=== PATIENT | male | born 1975 | race Caucasian/White ===

== ENCOUNTER 2017-07-31 22:53 | Inpatient (IN) | payer BC ==
[2017-07-31] MEDS ORDERED: MORPHINE SULFATE 2 MG/ML SYRINGE IV STA (23:34)
[2017-07-31] MEDS ORDERED: SODIUM CHLORIDE 0.9% 1,000 ML IV STA (23:34)
[2017-07-31] MEDS ORDERED: IPRATROPIUM-ALBUTEROL 3 ML NEB INHALATION STA (23:35)
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
[2017-08-01] LABS: Basophils % (A) 0 %; Eosinophils # (A) 0.4 k/uL (0-0.7); Eosinophils % (A) 7 %; HCT 37.4 % (39.0-53.0); HGB 12.6 gm/dL (13.0-17.5); Lymphocytes # (A) 1.4 k/uL (1.0-4.8); Lymphocytes % (A) 23 %; MCH 30.2 pg (25.0-35.0); MCHC 33.6 g/dL (31.0-37.0); MCV 89.7 fL (80.0-100.0); Mean Platelet Volume 7.5; Monocytes # (A) 0.4 k/uL (0-1.0); Monocytes % (A) 7 %; Neutrophils # (A) 3.8 k/uL (1.3-7.7); Neutrophils % (A) 61 %; Platelet Count 269 k/uL (150-450); RBC 4.17 m/uL (4.30-5.90); RDW 13.4 % (11.5-15.5); WBC 6.1 k/uL (3.8-10.6)
[2017-08-01 00:09] LABS: Partial Thromboplastin Time 24.7 sec (22.0-30.0); Prothrombin Time 9.6 sec (9.0-12.0)
[2017-08-01 00:10] LABS: ALT 70 U/L (21-72); AST 58 U/L (17-59); Albumin 3.6 g/dL (3.5-5.0); Alkaline Phosphatase 71 U/L (38-126); Anion Gap 10 mmol/L; Blood Urea Nitrogen 19 mg/dL (9-20); Calcium 9.3 mg/dL (8.4-10.2); Carbon Dioxide 30 mmol/L (22-30); Chloride 98 mmol/L (98-107); Glucose 120 mg/dL (74-99); Magnesium 2.2 mg/dL (1.6-2.3); Phosphorus 4.9 mg/dL (2.5-4.5); Potassium 4.9 mmol/L (3.5-5.1); Sodium 138 mmol/L (137-145); Total Bilirubin 0.6 mg/dL (0.2-1.3); Total Protein 6.2 g/dL (6.3-8.2)
[2017-08-01 00:13] LABS: Creatine Kinase 255 U/L (55-170)
[2017-08-01 00:26] LABS: Creatine Kinase MB 0.6 ng/mL (0.0-2.4); Troponin I <0.012 ng/mL (0.000-0.034)
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
[2017-08-01 01:22] LABS: Appearance,Urine Clear (Clear); Bilirubin,Urine Negative (Negative); Blood,Urine Negative (Negative); Color,Urine Light Yellow; Glucose,Urine (UA) Negative (Negative); Ketones,Urine Negative (Negative); Leukocyte Esterase,Urine Negative (Negative); Nitrite,Urine Negative (Negative); Protein,Urine Negative (Negative); Urobilinogen,Urine <2.0 mg/dL (<2.0)
[2017-08-01 01:25] LABS: Specific Gravity,Urine 1.048 (1.001-1.035)
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
--- NOTE | 2017-08-01 01:36 | US ---
EXAMINATION TYPE: US venous doppler duplex LE LT DATE OF EXAM: 08/01/2017 12:08 AM COMPARISON: NONE CLINICAL HISTORY: Pain. left leg pain and swelling SIDE PERFORMED: Left TECHNIQUE: The lower extremity deep venous system is examined utilizing real time linear array sonog jayant with graded compression, doppler sonography and color-flow sonography. VESSELS IMAGED: External Iliac Vein (EIV) Common Femoral Vein Deep Femoral Vein Greater Saphenous Vein * Femoral Vein Popliteal Vein Small Saphenous Vein * Proximal Calf Veins (* superficial vessels) Left Leg: Negative for DVT IMPRESSION: No evidence of deep venous thrombosis in the left leg.
--- NOTE | 2017-08-01 01:44 | XR ---
EXAMINATION TYPE: XR chest 1V portable DATE OF EXAM: 08/01/2017 COMPARISON: NONE HISTORY: Pneumothorax TECHNIQUE: Single frontal view of the chest is obtained. FINDINGS: There is a left-sided pneumothorax. Trachea is deviated slightly to the right. Cardiac anthony houette is enlarged. There is a plate fixing the left clavicle. Detail is limited by underexposure. T here is bilateral infiltrates at the lung bases. IMPRESSION: Left-sided pneumothorax. Atelectasis and infiltrate at the lung bases. Pneumothorax is a t least 30% on this image.
[2017-08-01] MEDS ORDERED: LIDOCAINE 1%-EPI 1:100,000 30 ML VIAL SQ STA (01:56)
[2017-08-01] MEDS ORDERED: HEPARIN SODIUM,PORCINE 5,000 UNIT/ML 1 ML VIAL IV PRN (02:20)
[2017-08-01] MEDS ORDERED: MORPHINE SULFATE 2 MG/ML SYRINGE IVP STA (02:20)
[2017-08-01] MEDS ORDERED: HEPARIN SODIUM,PORCINE 5,000 UNIT/ML 1 ML VIAL IV ONE (02:20)
[2017-08-01] MEDS: HEPARIN SOD,PORK IN 0.45% NACL 25,000 UNIT in 0.45% NACL 1 500ML.BAG IV SCH ×2 (02:42→15:43)
[2017-08-01 03:09] LABS: Glucose,Whole Blood 114 mg/dL (75-99)
[2017-08-01] MEDS: SODIUM CHLORIDE 0.9% 1,000 ML IV SCH ×3 (03:15→21:58)
[2017-08-01] MEDS: KETOROLAC 30 MG/ML 1 ML VIAL IVP PRN ×4 (03:42→20:18)
[2017-08-01 04:10] VITALS: BMI 33.6
[2017-08-01] MEDS ORDERED: SENNOSIDES 8.6 MG TAB PO PRN (06:22)
[2017-08-01] MEDS ORDERED: DOCUSATE 100 MG CAP PO PRN (06:23)
[2017-08-01] MEDS: MORPHINE SULFATE 2 MG/ML SYRINGE IVP PRN ×4 (06:36→21:42)
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
--- NOTE | 2017-08-01 07:14 | XR ---
EXAMINATION TYPE: XR chest 1V portable DATE OF EXAM: 08/01/2017 COMPARISON: Today at 1:15 AM HISTORY: Follow-up pneumothorax TECHNIQUE: Single frontal view of the chest is obtained. FINDINGS: There is hiatal hernia. There is some patchy atelectasis at the left lung base. Trachea is midline. I see no definite pneumothorax. I see no definite pleural effusion. There is a plate fixing the left clavicle. IMPRESSION: There is significant clearing of the left-sided pneumothorax compared to previous exam. No chest tube is seen. There is some atelectasis at the left and right lung bases.
[2017-08-01] MEDS: IPRATROPIUM-ALBUTEROL 3 ML NEB INHALATION SCH ×4 (07:50→19:28)
[2017-08-01] MEDS: ALPRAZolam 0.5 MG TAB PO PRN ×2 (08:08→16:44)
[2017-08-01] MEDS: PANTOPRAZOLE 40 MG TABLET PO SCH (08:09)
[2017-08-01] MEDS: GABAPENTIN 300 MG CAP PO SCH ×3 (08:09→21:43)
[2017-08-01] MEDS ORDERED: LIDOCAINE 1% INJ 10MG/ML (20 ML MDV) SQ STA (09:02)
[2017-08-01 09:40] LABS: HCT 35.6 % (39.0-53.0); HGB 11.8 gm/dL (13.0-17.5); MCH 30.2 pg (25.0-35.0); MCHC 33.1 g/dL (31.0-37.0); MCV 91.4 fL (80.0-100.0); Platelet Count 256 k/uL (150-450); WBC 7.2 k/uL (3.8-10.6)
[2017-08-01 09:51] LABS: Glucose,Whole Blood 117 mg/dL (75-99)
--- NOTE | 2017-08-01 11:24 | CT ---
EXAMINATION TYPE: CT chest wo con DATE OF EXAM: 08/01/2017 COMPARISON: Earlier today HISTORY: 42-year-old male follow-up Pneumothorax TECHNIQUE: Contiguous axial scanning of the chest without IV contrast. Coronal and sagittal reconstru ctions performed. CT DLP: 471.3 mGycm Automated exposure control for dose reduction was used. FINDINGS: Heart upper limits of normal in size with trace anterior basilar pericardial fluid. The degree of rig htward shift of the heart is improved. Aorta normal caliber with conventional arch vessel branching anatomy. In retrospect, there appears to be central filling defect within the right upper lobe segmental branc h, referred to the patient's prior exam series 2 image 54. A few scattered prominent but nonenlarged mediastinal lymph nodes measure up to 8 mm in the paratrach eal region and AP window. Prominent patchy right basilar atelectasis or infiltrate. Left-sided hydropneumothorax redemonstrated with a moderate to large, approximately 50% pneumothorax. There also appears to be collapse of the left lower lobe and a small to moderate left pleural effusi on. Only minimal reexpansion is compared to earlier in the day. Mild patchy groundglass in the peripheral right upper lobe is nonspecific. Tiny hiatal hernia. Visualized upper abdomen otherwise shows no gross abnormality. Bones: Multiple left-sided rib fractures are demonstrated, first, third, fourth, fifth which is segme ntal, sixth, seventh which is segmental, and eighth ribs. Prior plate and screw fixation of the left clavicular shaft mild degenerative disc disease mid thorac ic spine. IMPRESSION: 1. CONTINUED LEFT-SIDED HYDROPNEUMOTHORAX WITH SMALL TO MODERATE EFFUSION AND A MODERATE TO LARGE, AP PROXIMATELY 50% PNEUMOTHORAX WHICH SHOWS ONLY MINIMAL REEXPANSION. 2. THE RIGHTWARD SHIFT SEEN PREVIOUSLY APPEARS TO BE IMPROVED. 3. KNOWN RIGHT UPPER LOBE SEGMENTAL BRANCH PULMONARY EMBOLUS IS NOT EVALUATED ON THIS NONCONTRAST CT. 4. SOME PATCHY PULMONARY CONTUSIONS IN THE RIGHT UPPER LOBE AND PROMINENT RIGHT BASILAR ATELECTASIS. 5. MULTIPLE LEFT-SIDED RIB FRACTURES, TWO LEVELS BEING SEGMENTAL. FINDINGS CALLED TO 6-ICU AND DISCUSSED WITH NURSE DECKER AT 11:20 AM.
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
--- NOTE | 2017-08-01 12:07 | P.PCN ---
Date of Procedure: 08/01/17 Preoperative Diagnosis: Traumatic left hemo/pneumothorax Postoperative Diagnosis: same Procedure(s) Performed: Insertion L Thoravent Implants: 13F Thoravent Anesthesia: local Surgeon: Xiao Raza Pathology: none sent Condition: stable Disposition: no change Indications for Procedure: Left traumatic hemo/ptx S/P Multiple rib fx and clavicular ORIF Operative Findings: L Pneumothorax Description of Procedure: Patient under IV Heparin for acute pulmonary embolism. Last PTT , low 50's. Needs left Thoravent. Risk of bleeding explained to him. He agreed to proceed. Local anesthesia lidocaine 1% 10cc. L 2nd ICS mid-clavicular line. Small 2mm incision made and subsequently, a 13F thoravent was introduced without difficulty in the left pleural space and was connected to wall suction via pleurovacc. Air evacuated. Tolerated well. CXR ordered.
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
[2017-08-01] MEDS ORDERED: POTASSIUM CHLORIDE ER 20 MEQ TAB.ER PO STA (12:31)
--- NOTE | 2017-08-01 12:31 | P.PN ---
Progress Note - Text Progress Note Date: 08/01/17 Right pleural chest tube removed without incident. Suture secured in place. 4 x 4 dressing to cover and secured with tape.
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
--- NOTE | 2017-08-01 17:06 | XR ---
EXAMINATION TYPE: XR chest 1V portable DATE OF EXAM: 08/01/2017 Comparison: Earlier today Clinical History: 42-year-old male post left thoravent placement Findings: Left-sided Thora vent appears to be at the left anterior third intercostal space. Patient's left-side d pneumothorax no longer well seen. There is small left pleural effusion with prominent left basilar opacity. Minimal patchy medial right basilar density remains. Prior plate and screw fixation of the l eft clavicle. No multiple left-sided rib fractures are not as well-seen on the present exam. Impression: 1. Thoravent inserted into the anterior left third intercostal space. Pneumothorax not clearly apprec iated. 2. Continued small left pleural effusion with prominent adjacent atelectasis and/or consolidation, in creased from earlier today. 3. Known multiple left-sided rib fracture deformities not well seen.
[2017-08-01 20:57] LABS: HCT 33.4 % (39.0-53.0); HGB 11.1 gm/dL (13.0-17.5); MCH 30.4 pg (25.0-35.0); MCHC 33.1 g/dL (31.0-37.0); MCV 91.8 fL (80.0-100.0); Mean Platelet Volume 7.4; Platelet Count 252 k/uL (150-450); RBC 3.64 m/uL (4.30-5.90); RDW 13.6 % (11.5-15.5); WBC 6.1 k/uL (3.8-10.6)
[2017-08-01] MEDS: DICLOFENAC SODIUM GEL 100 GM TUBE TOPICAL PRN (21:42)
[2017-08-02] MEDS: MORPHINE SULFATE 2 MG/ML SYRINGE IVP PRN ×5 (01:34→22:42)
[2017-08-02] MEDS: HEPARIN SOD,PORK IN 0.45% NACL 25,000 UNIT in 0.45% NACL 1 500ML.BAG IV SCH ×2 (04:28→19:32)
[2017-08-02 05:53] LABS: Basophils % (A) 0 %; Eosinophils # (A) 0.4 k/uL (0-0.7); Eosinophils % (A) 7 %; HCT 33.7 % (39.0-53.0); Lymphocytes # (A) 1.7 k/uL (1.0-4.8); Lymphocytes % (A) 28 %; MCHC 32.6 g/dL (31.0-37.0); MCV 91.8 fL (80.0-100.0); Mean Platelet Volume 7.3; Monocytes # (A) 0.4 k/uL (0-1.0); Monocytes % (A) 6 %; Neutrophils # (A) 3.5 k/uL (1.3-7.7); Neutrophils % (A) 58 %; Platelet Count 258 k/uL (150-450); RBC 3.67 m/uL (4.30-5.90); RDW 13.6 % (11.5-15.5)
[2017-08-02 06:35] LABS: Anion Gap 7 mmol/L; Blood Urea Nitrogen 20 mg/dL (9-20); Calcium 8.3 mg/dL (8.4-10.2); Carbon Dioxide 27 mmol/L (22-30); Chloride 104 mmol/L (98-107); Glucose 100 mg/dL (74-99); Phosphorus 3.5 mg/dL (2.5-4.5); Potassium 4.1 mmol/L (3.5-5.1); Sodium 138 mmol/L (137-145)
--- NOTE | 2017-08-02 07:10 | XR ---
EXAMINATION TYPE: XR chest 1V portable DATE OF EXAM: 08/02/2017 Comparison: 07/31/2017 Clinical History: 42 year-old male left pneumothorax Findings: Heart size accentuated by AP technique. Plate and screw fixation left clavicle. Multiple left-sided r ib fractures. Alignment in the left anterior third intercostal space redemonstrated. Small left pleur al effusion and left basilar opacity shows some improvement from yesterday. Pneumothorax not clearly identified. Impression: 1. Left-sided Thora vent. No pneumothorax appreciated. Multiple known left-sided rib fractures. 2. Improving small left pleural effusion and left basilar atelectasis and/or consolidation.
[2017-08-02] MEDS: ALPRAZolam 0.5 MG TAB PO PRN ×2 (07:12→14:09)
[2017-08-02] MEDS: DICLOFENAC SODIUM GEL 100 GM TUBE TOPICAL PRN ×3 (07:13→19:51)
[2017-08-02] MEDS: GABAPENTIN 300 MG CAP PO SCH ×3 (08:07→20:40)
[2017-08-02] MEDS: PANTOPRAZOLE 40 MG TABLET PO SCH (08:07)
[2017-08-02] MEDS: SODIUM CHLORIDE 0.9% 1,000 ML IV SCH ×2 (08:07→16:01)
[2017-08-02] MEDS: KETOROLAC 30 MG/ML 1 ML VIAL IVP PRN (08:08)
[2017-08-02] MEDS: IPRATROPIUM-ALBUTEROL 3 ML NEB INHALATION SCH ×4 (08:14→20:16)
--- NOTE | 2017-08-02 10:55 | ECHOF ---
Referral Reason:pe MEASUREMENTS -------- HEIGHT: 170.2 cm WEIGHT: 98.4 kg BP: 153/87 IVSd: 1.1 cm (0.6 - 1.1) LVIDd: 4.6 cm (3.9 - 5.3) LVPWd: 1.0 cm (0.6 - 1.1) IVSs: 1.4 cm LVIDs: 3.5 cm LVPWs: 1.4 cm LA Diam: 4.1 cm (2.7 - 3.8) RVIDd: 3.6 cm (< 3.3) FINDINGS -------- Sinus rhythm. This was a technically difficult study with suboptimal views. Limited Study The left ventricular size is normal. There is borderline concentric left ventricular hypertrophy. Overall left ventricular systolic function is normal with, an EF between 55 - 60 %. The right ventricle is mildly enlarged. The left atrium is mildly dilated. The right atrium is normal in size. The aortic valve was not well visualized. The mitral valve is normal. The tricuspid valve was not well visualized. The pulmonic valve was not well visualized. CONCLUSIONS -------- 1. Sinus rhythm. 2. This was a technically difficult study with suboptimal views. 3. Limited Study 4. The left ventricular size is normal. 5. There is borderline concentric left ventricular hypertrophy. 6. Overall left ventricular systolic function is normal with, an EF between 55 - 60 %. 7. The right ventricle is mildly enlarged. 8. The left atrium is mildly dilated. 9. The right atrium is normal in size. 10. The aortic valve was not well visualized. 11. The mitral valve is normal. 12. The tricuspid valve was not well visualized. 13. The pulmonic valve was not well visualized. JOCKEY ROOM CUSTODIAN: Tiffany Blancas RDCS
--- NOTE | 2017-08-02 11:07 | P.PN ---
Subjective Progress Note Date: 08/02/17 Patient working with incentive spirometry reports that it's hard to take those deep breaths due to pain from his rib fractures, patient reports to being a little bit anxious. Reports his breathing is slightly improved. Also complaining of leg cramps. Otherwise no acute events overnight Objective - Vital Signs Vital signs: Vital Signs Temp 98.1 F 08/02/17 08:00 Pulse 87 08/02/17 10:00 Resp 18 08/02/17 10:00 BP 132/75 08/02/17 10:00 Pulse Ox 95 08/02/17 10:00 Intake & Output 08/01/17 08/02/17 08/02/17 18:59 06:59 18:59 Intake Total 8869.895 8424.733 400 Output Total 900 950 Balance 206.812 7423.733 400 Weight 98.4 kg Intake: IV 1400 1200 400 Sodium Chloride 0.9% 1, 1400 1200 400 000 ml @ 100 mls/hr IV . Q10H [facility] Rx#:[id number] Intake, IV Titration 461.181 451.733 Amount Heparin Sod,Pork in 0.45% 461.181 451.733 NaCl 25,000 unit In 0.45 % NaCl 1 500ml.bag @ 18 UNITS/KG/HR 35.43 mls/hr IV .Q14H7M [facility] Rx#: [id number] Oral 600 Output: Urine 900 950 Other: Voiding Method Urinal # Voids 1 0 0 # Bowel Movements 1 - Exam Constitutional: No acute distress, conversant, pleasant Eyes: Anicteric sclerae, moist conjunctiva, no lid-lag, PERRLA ENMT: NC/AT,Oropharynx clear, no erythema, exudates Neck:Supple, FROM, no masses, or JVD, No carotid bruits; No thyromegaly Lungs: Slightly diminished on the left improved aeration no flail chest Clear to percussion, Normal respiratory effort, no accessory muscle use, left lower quadrant in place Cardiovascular: Heart regular in rate and rhythm, No murmurs, gallops, or rubs no peripheral edema Abdominal: Soft Nontender, nom distended, no guarding, no rebound or rigidity, Normoactive bowel sounds No hepatomegaly, No splenomegaly, No palpable mass No abdominal wall hernia noted Skin: Normal temperature, tone, texture, turgor, No induration No subcutaneous nodules, No rash, lesions, No ulcers Extremities:No digital cyanosis No clubbing, Pedal pulses intact and symmetrical Radial pulses intact and symmetrical Normal gait and station, No calf tenderness Psychiatric: Alert and oriented to person, place and time, Appropriate affect Intact judgement Neuro: Muscles Strength 5/5 in all 4 extremities, Sensation to light touch grossly present throughout, Cranial nerves II-XII grossly intact. No focal sensory deficits - Labs CBC & Chem 7: 08/02/17 05:40 08/02/17 05:40 Labs: Abnormal Lab Results - Last 24 Hours (Table) 08/01/17 08/02/17 08/02/17 Range/Units 20:15 05:40 05:40 RBC 3.64 L 3.67 L (4.30-5.90) m/uL Hgb 11.1 L 11.0 L (13.0-17.5) gm/dL Hct 33.4 L 33.7 L (39.0-53.0) % APTT 47.4 H (22.0-30.0) sec Glucose (74-99) mg/dL Calcium (8.4-10.2) mg/dL 08/02/17 Range/Units 05:40 RBC (4.30-5.90) m/uL Hgb (13.0-17.5) gm/dL Hct (39.0-53.0) % APTT (22.0-30.0) sec Glucose 100 H (74-99) mg/dL Calcium 8.3 L (8.4-10.2) mg/dL Assessment and Plan (1) Traumatic pneumothorax and hemothorax Narrative/Plan: * Appreciated recommendations of consultants * Left thoravent placed yesterday * Chest x-rays today showing no pneumothorax with improving left small pleural effusion and left basilar atelectasis Current Visit: Yes Status: Acute Code(s): S27.2XXA - TRAUMATIC HEMOPNEUMOTHORAX, INITIAL ENCOUNTER SNOMED Code(s): 57440640 (2) Acute pulmonary embolism Narrative/Plan: * Provoked * Continue IV heparin * We'll need anticoagulation for 3-6 months Current Visit: Yes Status: Acute Code(s): I26.99 - OTHER PULMONARY EMBOLISM WITHOUT ACUTE COR PULMONALE SNOMED Code(s): 946490053 (3) Left rib fracture Narrative/Plan: * Continue pain control with Voltaren gel we'll add [place] and stop Toradol * Patient currently on morphine for pain * Consult physical therapy Current Visit: Yes Status: Acute Code(s): S22.32XA - FRACTURE OF ONE RIB, LEFT SIDE, INIT FOR CLOS FX SNOMED Code(s): 06833101 (4) Post-op pain Current Visit: Yes Status: Acute Code(s): G89.18 - OTHER ACUTE POSTPROCEDURAL PAIN SNOMED Code(s): 678444962 Plan: Disposition' Patient doing better today, we'll try to get his pain under better control. Await feedback from consultants Anticipate discharge in the next 2-3 days
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
[2017-08-02] MEDS: HYDROcodone/APAP 7.5-325MG 1 EACH TAB PO PRN (14:05)
--- NOTE | 2017-08-02 14:44 | P.PN ---
Subjective Progress Note Date: 08/02/17 On today's evaluation of 08/02/2017 the patient is doing well and he has a left Thoravent in place and he is postop day #1. His left lung is nicely expanded. On today's evaluation there is no fluid the cannulation within the left pleural VAC. There is no evidence of any air leak. Pain is around 6 out of 10 in severity however the patient is emanating the patient is much less short of breath compared to yesterday. Pulse ox is around 95% on room air. He is using incentive spirometer. Surgical wound site over the left anterior clavicular areas dry clean and intact. No other significant events otherwise for now. The patient is hemodynamically stable. Objective - Vital Signs Vital signs: Vital Signs Temp 98.4 F 08/02/17 12:00 Pulse 86 08/02/17 13:00 Resp 22 08/02/17 13:00 BP 132/73 08/02/17 13:00 Pulse Ox 92 L 08/02/17 13:00 Intake & Output 08/01/17 08/02/17 08/02/17 18:59 06:59 18:59 Intake Total 3276.463 6293.733 700 Output Total 900 950 90 Balance 787.968 8568.733 610 Weight 98.4 kg Intake: IV 1400 1200 700 Sodium Chloride 0.9% 1, 1400 1200 700 000 ml @ 100 mls/hr IV . Q10H [facility] Rx#:[id number] Intake, IV Titration 461.181 451.733 Amount Heparin Sod,Pork in 0.45% 461.181 451.733 NaCl 25,000 unit In 0.45 % NaCl 1 500ml.bag @ 18 UNITS/KG/HR 35.43 mls/hr IV .Q14H7M [facility] Rx#: [id number] Oral 600 Output: Chest Tube Drainage 90 Thora-Vent Left 90 Urine 900 950 Other: Voiding Method Urinal # Voids 1 0 1 # Bowel Movements 1 - Exam - Constitutional General appearance: Present: cooperative, no acute distress, obese - Respiratory Details: Essentially clear throughout, diminished to his left lower lobe. Respirations are symmetrical and nonlabored. Oxygen saturation are 95% on room air. He is achieving 1000 L on his incentive spirometry. Productive cough with thin yellow sputum. - Cardiovascular Details: Cardiac exam revealed the PMI to be normally situated and sized. The rhythm was regular and no extrasystoles were noted during several minutes of auscultation. The first and second heart sounds were normal and physiologic splitting of the second heart sound was noted. There were no murmurs, rubs, clicks, or gallops. - Gastrointestinal Gastrointestinal Comment(s): Abdomen is soft, nontender and nondistended. Obese. Active bowel sounds all 4 abdominal quadrants. No organomegaly. No palpable masses. Tolerating oral intake. - Genitourinary Genitourinary Comment(s): Voiding clear yellow urine. - Integumentary Integumentary Comment(s): Skin is warm and dry. No clubbing or cyanosis present. Left chest clavicular incision clean dry and approximated. No redness or drainage present. No rash or abnormal pigmentation present. - Neurologic Neurologic: Present: CNII-XII intact - Musculoskeletal Musculoskeletal: Present: gait normal, strength equal bilaterally - Psychiatric Psychiatric: Present: A&O x's 3, appropriate affect, intact judgment & insight - Allied health notes Allied health notes reviewed: nursing - Labs CBC & Chem 7: 08/02/17 05:40 08/02/17 05:40 Labs: Abnormal Lab Results - Last 24 Hours (Table) 08/01/17 08/02/17 08/02/17 Range/Units 20:15 05:40 05:40 RBC 3.64 L 3.67 L (4.30-5.90) m/uL Hgb 11.1 L 11.0 L (13.0-17.5) gm/dL Hct 33.4 L 33.7 L (39.0-53.0) % APTT 47.4 H (22.0-30.0) sec Glucose (74-99) mg/dL Calcium (8.4-10.2) mg/dL 08/02/17 Range/Units 05:40 RBC (4.30-5.90) m/uL Hgb (13.0-17.5) gm/dL Hct (39.0-53.0) % APTT (22.0-30.0) sec Glucose 100 H (74-99) mg/dL Calcium 8.3 L (8.4-10.2) mg/dL Assessment and Plan Plan: Assessment 1 traumatic left-sided pneumothorax, with complicated 50 expansion following a left Thoravent insertion. 2 acute pulmonary embolism, incidental finding as seen on the CT angios the chest. Currently on IV heparin. Doppler of lower extremities negative. 3 acute hypoxic respiratory failure secondary to above 4 traumatic nondisplaced fractures on the left, 5 ribs at least visualized on computed tomography scan of the chest 5 traumatic left clavicular fracture status post ORIF 6 ADHD 7 obesity Plan Keep the Thoravent and for another 24 hours. IV heparin and move the patient to oral anticoagulation once the Thoravent is removed. Ambulate. Continue using incentive spirometer. Most this patient to telemetry unit.
[2017-08-02] MEDS: LIDOCAINE 5% PATCH TOPICAL SCH (20:40)
[2017-08-03] MEDS: MORPHINE SULFATE 2 MG/ML SYRINGE IVP PRN ×5 (03:23→20:53)
[2017-08-03] MEDS: HEPARIN SOD,PORK IN 0.45% NACL 25,000 UNIT in 0.45% NACL 1 500ML.BAG IV SCH (06:06)
[2017-08-03] MEDS: SODIUM CHLORIDE 0.9% 1,000 ML IV SCH ×2 (06:07→17:19)
[2017-08-03] MEDS: PANTOPRAZOLE 40 MG TABLET PO SCH (06:08)
[2017-08-03] MEDS: HYDROcodone/APAP 7.5-325MG 1 EACH TAB PO PRN ×3 (06:17→22:49)
[2017-08-03 07:22] LABS: Basophils % (A) 1 %; Eosinophils # (A) 0.5 k/uL (0-0.7); Eosinophils % (A) 7 %; HCT 35.3 % (39.0-53.0); HGB 11.8 gm/dL (13.0-17.5); Lymphocytes % (A) 25 %; MCH 30.7 pg (25.0-35.0); MCHC 33.5 g/dL (31.0-37.0); MCV 91.6 fL (80.0-100.0); Mean Platelet Volume 7.2; Monocytes # (A) 0.5 k/uL (0-1.0); Monocytes % (A) 7 %; Neutrophils # (A) 4.6 k/uL (1.3-7.7); Neutrophils % (A) 59 %; Platelet Count 310 k/uL (150-450); RBC 3.85 m/uL (4.30-5.90); RDW 13.9 % (11.5-15.5); WBC 7.8 k/uL (3.8-10.6)
[2017-08-03 07:35] LABS: Anion Gap 8 mmol/L; Blood Urea Nitrogen 16 mg/dL (9-20); Carbon Dioxide 29 mmol/L (22-30); Chloride 102 mmol/L (98-107); Glucose 98 mg/dL (74-99); Magnesium 2.1 mg/dL (1.6-2.3); Phosphorus 3.8 mg/dL (2.5-4.5); Potassium 4.4 mmol/L (3.5-5.1); Sodium 139 mmol/L (137-145)
[2017-08-03] MEDS: IPRATROPIUM-ALBUTEROL 3 ML NEB INHALATION SCH ×4 (07:41→20:59)
--- NOTE | 2017-08-03 07:41 | XR ---
EXAMINATION TYPE: XR chest 1V portable DATE OF EXAM: 08/03/2017 COMPARISON: Prior chest x-ray 08/02/2017 HISTORY: Left pneumothorax, chest tube TECHNIQUE: Single frontal view of the chest is obtained. FINDINGS: Similar findings to prior, left-sided chest tube remains in place, no sizable pneumothorax . Lung volumes are low and the patient is rotated. Heart is enlarged. Postop change noted to the left clavicle. Pleural thickening, left-sided rib fractures are present. IMPRESSION: Similar findings to prior exam. No significant residual pneumothorax.
[2017-08-03] MEDS: ALPRAZolam 0.5 MG TAB PO PRN ×2 (08:23→17:18)
[2017-08-03] MEDS: GABAPENTIN 300 MG CAP PO SCH ×3 (08:23→21:34)
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
--- NOTE | 2017-08-03 11:06 | P.PN ---
Subjective Progress Note Date: 08/03/17 Principal diagnosis: Acute traumatic left-sided pneumothorax On today's evaluation of 08/02/2017 the patient is doing well and he has a left Thoravent in place and he is postop day #1. His left lung is nicely expanded. On today's evaluation there is no fluid the cannulation within the left pleural VAC. There is no evidence of any air leak. Pain is around 6 out of 10 in severity however the patient is emanating the patient is much less short of breath compared to yesterday. Pulse ox is around 95% on room air. He is using incentive spirometer. Surgical wound site over the left anterior clavicular areas dry clean and intact. No other significant events otherwise for now. The patient is hemodynamically stable. Patient was reevaluated today on 08/03/2017, his postoperative day #3, placement of left thoravent. Patient is relatively asymptomatic, and thoravent was Today. Follow-up chest x-ray is going to be done sometime later today or tomorrow. Patient denies any cough wheezing shortness of breath. Some pain is noted. Objective - Vital Signs Vital signs: Vital Signs Temp 96.7 F L 08/03/17 08:00 Pulse 79 08/03/17 08:00 Resp 18 08/03/17 04:00 BP 139/73 08/03/17 08:00 Pulse Ox 95 08/03/17 08:00 Intake & Output 08/02/17 08/03/17 08/03/17 18:59 06:59 18:59 Intake Total 1200 534.377 360 Output Total 100 405 Balance 1100 129.377 360 Weight 98.2 kg Intake: IV 700 160 Sodium Chloride 0.9% 1, 700 160 000 ml @ 100 mls/hr IV . Q10H JORDAN Rx#:[id number] Intake, IV Titration 500 374.377 Amount Heparin Sod,Pork in 0.45% 500 374.377 NaCl 25,000 unit In 0.45 % NaCl 1 500ml.bag @ 18 UNITS/KG/HR 35.43 mls/hr IV .Q14H7M JORDAN Rx#: [id number] Oral 360 Output: Chest Tube Drainage 100 Thora-Vent Left 100 Drainage 5 Left Chest 5 Urine 400 Other: Voiding Method Urinal Urinal # Voids 1 2 - Exam Physical Exam: Revealed a 42-year-old white male in no distress. HEENT:[Neck is supple.] [No neck masses.] [No thyromegaly.] [No JVD.] Chest: [Clear throughout, no crackles, no rhonchi, no wheezes.] Left upper chest wall thoravent is noted. Secured with adhesive dressing. Cardiac Exam: [Normal S1 and S2, no S3 gallop, no murmur.] Abdomen: [Soft, nontender, no megaly, no rebound, no guarding, normal bowel sounds.] Extremities: [No clubbing, no edema, no cyanosis.] Neurological Exam: [No focal neurologic deficit.] Psychiatric: Normal mood affect and mental status exam Lymphatics: No lymphadenopathy. - Labs CBC & Chem 7: 08/03/17 06:39 08/03/17 06:39 Labs: Abnormal Lab Results - Last 24 Hours (Table) 08/03/17 08/03/17 Range/Units 06:39 06:39 RBC 3.85 L (4.30-5.90) m/uL Hgb 11.8 L (13.0-17.5) gm/dL Hct 35.3 L (39.0-53.0) % APTT 53.2 H (22.0-30.0) sec Assessment and Plan Assessment: 1 traumatic left-sided pneumothorax, with complicated 50 expansion following a left Thoravent insertion. 2 acute pulmonary embolism, incidental finding as seen on the CT angios the chest. Currently on IV heparin. Doppler of lower extremities negative. 3 acute hypoxic respiratory failure secondary to above 4 traumatic nondisplaced fractures on the left, 5 ribs at least visualized on computed tomography scan of the chest 5 traumatic left clavicular fracture status post ORIF 6 ADHD 7 obesity Recommendation: Continue present treatment plan, possibly remove thoravent later today or in a.m. depending on the follow-up chest x-ray findings. Continue anti-ventilation therapy, for his pulmonary embolism, possible discharge planning in the next 24-48 hours. Time with Patient: Less than 30
--- NOTE | 2017-08-03 11:37 | XR ---
Right ankle HISTORY: Trauma and pain 3 views of the right ankle There is soft tissue swelling present. Bone mineralization, joint spaces and alignment are maintained . Proximal fifth metatarsal is not well seen on the images submitted. IMPRESSION: No acute fracture or dislocation. Soft tissue swelling. Limitations as described. Follow- up as indicated.
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
[2017-08-03] MEDS: RIVAROXABAN 15 MG TAB PO SCH ×2 (17:21→17:25)
[2017-08-03] MEDS: LIDOCAINE 5% PATCH TOPICAL SCH (22:49)
[2017-08-04] MEDS: MORPHINE SULFATE 2 MG/ML SYRINGE IVP PRN ×5 (01:38→23:08)
[2017-08-04] MEDS: SODIUM CHLORIDE 0.9% 1,000 ML IV SCH ×2 (02:53→21:50)
[2017-08-04] MEDS: RIVAROXABAN 15 MG TAB PO SCH ×2 (06:24→16:11)
[2017-08-04] MEDS: PANTOPRAZOLE 40 MG TABLET PO SCH (06:24)
[2017-08-04] MEDS: IPRATROPIUM-ALBUTEROL 3 ML NEB INHALATION SCH ×4 (07:58→19:30)
[2017-08-04] MEDS: HYDROcodone/APAP 7.5-325MG 1 EACH TAB PO PRN ×2 (08:00→16:12)
[2017-08-04] MEDS: DOCUSATE 100 MG CAP PO SCH (08:00)
[2017-08-04] MEDS: ALPRAZolam 0.5 MG TAB PO PRN ×2 (08:01→23:07)
[2017-08-04] MEDS: GABAPENTIN 300 MG CAP PO SCH ×3 (08:02→21:36)
--- NOTE | 2017-08-04 09:44 | XR ---
EXAMINATION TYPE: XR chest 1V portable DATE OF EXAM: 08/04/2017 COMPARISON: Prior chest x-ray 08/03/2017 HISTORY: Pneumothorax, left chest tube TECHNIQUE: Single frontal view of the chest is obtained. FINDINGS: Left-sided chest tube is stable. Multiple left-sided rib fractures are noted. There is ass ociated pleural thickening. No evident pneumothorax or sizable effusion. Lung volumes are low and the patient remains rotated. Heart is enlarged. There is some improvement of aeration at the lung bases. IMPRESSION: Some improvement in aeration. Left chest tube is stable.
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
[2017-08-04] MEDS ORDERED: MELATONIN 5 MG TABLET PO PRN (11:14)
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
[2017-08-04] MEDS: DICLOFENAC SODIUM GEL 100 GM TUBE TOPICAL PRN (15:07)
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
[2017-08-04] MEDS: LIDOCAINE 5% PATCH TOPICAL SCH (21:36)
[2017-08-05] MEDS: HYDROcodone/APAP 7.5-325MG 1 EACH TAB PO PRN ×2 (01:03→14:43)
[2017-08-05 07:58] LABS: HCT 35.8 % (39.0-53.0); HGB 11.8 gm/dL (13.0-17.5); MCH 29.9 pg (25.0-35.0); MCV 90.6 fL (80.0-100.0); Mean Platelet Volume 7.6; Platelet Count 308 k/uL (150-450); RBC 3.96 m/uL (4.30-5.90); RDW 13.5 % (11.5-15.5); WBC 8.6 k/uL (3.8-10.6)
[2017-08-05 08:32] LABS: Anion Gap 9 mmol/L; Blood Urea Nitrogen 18 mg/dL (9-20); Carbon Dioxide 31 mmol/L (22-30); Chloride 99 mmol/L (98-107); Glucose 98 mg/dL (74-99); Potassium 4.7 mmol/L (3.5-5.1); Sodium 139 mmol/L (137-145)
[2017-08-05] MEDS ORDERED: AMPHETAMINE PO SCH (09:00)
[2017-08-05] MEDS ORDERED: DEXTROAMPHETAMINE PO SCH (09:00)
--- NOTE | 2017-08-05 10:43 | XR ---
EXAMINATION TYPE: XR chest 1V portable DATE OF EXAM: 08/05/2017 COMPARISON: Prior chest x-ray 08/04/2017 HISTORY: Left pneumothorax TECHNIQUE: Single frontal view of the chest is obtained. FINDINGS: Findings are stable. IMPRESSION: No significant interval change. No sizable pneumothorax. Chest tube is stable.
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
[2017-08-05] MEDS: RIVAROXABAN 15 MG TAB PO SCH ×2 (10:57→17:06)
[2017-08-05] MEDS: IPRATROPIUM-ALBUTEROL 3 ML NEB INHALATION SCH ×3 (10:57→15:17)
[2017-08-05] MEDS: PANTOPRAZOLE 40 MG TABLET PO SCH (10:57)
[2017-08-05] MEDS: SODIUM CHLORIDE 0.9% 1,000 ML IV SCH (10:57)
[2017-08-05] MEDS: DOCUSATE 100 MG CAP PO SCH (10:58)
[2017-08-05] MEDS: GABAPENTIN 300 MG CAP PO SCH ×2 (10:58→17:06)
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
[2017-08-05 11:02] VITALS: RESP 18; TEMP 97.2
[2017-08-05 11:34] VITALS: BP 121/72
[2017-08-05] MEDS: MORPHINE SULFATE 2 MG/ML SYRINGE IVP PRN (11:45)
[2017-08-05 11:59] VITALS: PULSE 88
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
--- NOTE | 2017-08-05 15:11 | XR ---
EXAMINATION TYPE: XR chest 2V DATE OF EXAM: 08/05/2017 COMPARISON: Prior chest x-ray same date earlier time HISTORY: Status post chest tube removal TECHNIQUE: Frontal and lateral views of the chest are obtained. FINDINGS: There has been interval removal of the thoracic vent. No evident sizable pneumothorax, min imal apical pneumothorax suspected. Strand-like densities at the lung bases may reflect atelectasis o r scarring. Multiple left-sided rib fractures, pleural thickening noted. There are basilar atelectati c changes. IMPRESSION: Minimal apical left pneumothorax is suspected. Basilar atelectasis. Follow-up suggested.
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
== END 2017-08-05 17:33 | disposition home health service (06) | DRG 199 ==
LOC: EC 22:53 → 6ICU 08-01 02:22 → 6SEL 08-02 13:26
PROVIDERS: ADMIT Internal Medicine; ATTEND Internal Medicine
PROC: 0W9B30Z Drainage of Left Pleural Cavity with Drainage Device, Percutaneous Approach (ICD-10-PCS; principal; 2017-08-01)
DX: S27.2XXA Traumatic hemopneumothorax, initial encounter (principal); I26.99 Other pulmonary embolism without acute cor pulmonale; J96.01 Acute respiratory failure with hypoxia; S22.42XA Multiple fractures of ribs, left side, initial encounter for closed fracture; J98.11 Atelectasis; D62 Acute posthemorrhagic anemia; J91.8 Pleural effusion in other conditions classified elsewhere; K21.9 Gastro-esophageal reflux disease without esophagitis; F90.9 Attention-deficit hyperactivity disorder, unspecified type; E66.9 Obesity, unspecified; F98.8 Other specified behavioral and emotional disorders with onset usually occurring in childhood and adolescence; R59.9 Enlarged lymph nodes, unspecified; S93.401A Sprain of unspecified ligament of right ankle, initial encounter; S42.002A Fracture of unspecified part of left clavicle, initial encounter for closed fracture; Z68.32 Body mass index [BMI] 32.0-32.9, adult; Z79.891 Long term (current) use of opiate analgesic; Z79.899 Other long term (current) drug therapy; Z80.0 Family history of malignant neoplasm of digestive organs; Z82.49 Family history of ischemic heart disease and other diseases of the circulatory system; Z83.3 Family history of diabetes mellitus; Z83.79 Family history of other diseases of the digestive system; V86.56XA Driver of dirt bike or motor/cross bike injured in nontraffic accident, initial encounter; Y92.39 Other specified sports and athletic area as the place of occurrence of the external cause
CPT/HCPCS: 36415; 71045; 71046; 71250; 71275; 74177; 80048; 80053; 81003; 82550; 82553; 83735; 84100; 84484; 85025; 85027; 85610; 85730; 93308; 94640; 96361; 96374; 96375; 96376; 99291

== ENCOUNTER → 2017-08-11 | Outpatient (CLI) | payer BC ==
--- NOTE | 2017-08-11 15:50 | XR ---
EXAMINATION TYPE: XR chest 2V DATE OF EXAM: 08/11/2017 COMPARISON: Prior chest x-ray 08/05/2017 HISTORY: Pneumothorax TECHNIQUE: Frontal and lateral views of the chest are obtained. FINDINGS: There is no focal air space opacity, pleural effusion, or pneumothorax seen. The cardiac silhouette size is stable. Postop changes again noted to the left clavicle. Minimal patchy basilar d ensity is stable. Pleural thickening present due to multiple left-sided rib fractures again seen. The osseous structures are intact. IMPRESSION: Basilar atelectasis, posttraumatic changes.
== END | disposition home or self-care (01) ==
LOC: RADXRMAIN 15:08
PROVIDERS: ATTEND Nurse Practitioner Adult Health
DX: J98.11 Atelectasis (principal); Z98.890 Other specified postprocedural states
CPT/HCPCS: 71046

== ENCOUNTER → 2017-11-02 | Outpatient (CLI) | payer BC ==
--- NOTE | 2017-11-02 11:26 | CT ---
EXAMINATION TYPE: CT angio chest DATE OF EXAM: 11/02/2017 COMPARISON: CT chest August 01, 2017 HISTORY: Follow up known PE. CT DLP: 468 mGycm. Automated Exposure Control for Dose Reduction was Utilized. CONTRAST: CTA scan of the thorax is performed with IV Contrast, patient injected with 100 mL of Isovue 370, pul monary embolism protocol. MIP Images are created on CT scanner and reviewed. FINDINGS: LUNGS: No pneumothorax is seen on current study. There is left basilar linear scarring and/or atelect asis near diaphragm. No suspicious parenchymal nodule or mass is identified. No pleural effusion is p resent bilaterally. Central mild peribronchial wall thickening is present bilaterally. MEDIASTINUM: There is suboptimal bolus with near equal contrast seen in the right and left heart sys tems but there is no CT evidence for acute pulmonary embolism on current study. There are better vis ualized enlarged bilateral hilar lymph nodes, for reference right hilar lymph node measures 2.6 x 1.4 cm on current study axial image 60. There is enlarged subcarinal lymph node measuring 1.9 x 1.3 cm a xial image 65. Enlarged left hilar lymph nodes extend to the prevascular space No significant perica rdial effusion is seen. Stable mild cardiomegaly. OTHER: Metallic surgical plate left clavicle is redemonstrated. There are healing left lateral rib fr actures involving third through eighth ribs. There is healing fracture involving posterior bifid left first rib axial image 8. IMPRESSION: 1. No CT evidence for acute pulmonary embolism currently. 2. Cardiomegaly without acute pulmonary process currently. Abnormal thoracic adenopathy redemonstrate d differential includes old granulomatous disease, sarcoidosis, and infectious/inflammatory etiologie s. Other etiologies are not excluded. Consider Bronchoscopy evaluation.
== END ==
LOC: RADCTMAIN 10:19
PROVIDERS: ATTEND Family Medicine
DX: I51.7 Cardiomegaly (principal); R93.8 Abnormal findings on diagnostic imaging of other specified body structures
CPT/HCPCS: 71275; Q9967

== ENCOUNTER → 2017-11-13 | Outpatient (CLI) | payer BC ==
[2017-11-13 14:56] LABS: Basophils % (A) 1 %; Eosinophils # (A) 0.2 k/uL (0-0.7); Eosinophils % (A) 4 %; HCT 46.6 % (39.0-53.0); HGB 15.4 gm/dL (13.0-17.5); Lymphocytes # (A) 1.9 k/uL (1.0-4.8); Lymphocytes % (A) 34 %; MCH 29.4 pg (25.0-35.0); Mean Platelet Volume 7.3; Monocytes # (A) 0.3 k/uL (0-1.0); Monocytes % (A) 5 %; Neutrophils # (A) 3.1 k/uL (1.3-7.7); Neutrophils % (A) 55 %; Platelet Count 217 k/uL (150-450); RBC 5.23 m/uL (4.30-5.90); RDW 14.9 % (11.5-15.5); WBC 5.6 k/uL (3.8-10.6)
[2017-11-13 16:41] LABS: Erythrocyte Sedimentation Rate 3 mm/hr (0-15)
== END | disposition home or self-care (01) ==
LOC: LABWHC1 12:31
PROVIDERS: ATTEND Internal Medicine
DX: D86.9 Sarcoidosis, unspecified (principal); R59.0 Localized enlarged lymph nodes
CPT/HCPCS: 36415; 82164; 85025; 85652

== ENCOUNTER → 2018-02-17 | Outpatient (CLI) | payer BC ==
--- NOTE | 2018-02-17 11:54 | CT ---
EXAMINATION TYPE: CT chest w con DATE OF EXAM: 02/17/2018 COMPARISON: CTA chest November 02, 2017 and older CTs back to August 01, 2017 HISTORY: mediastinal adenopathy CT DLP: 614 mGycm. Automated Exposure Control for Dose Reduction was Utilized. TECHNIQUE: CT scan of the thorax is performed following with IV Contrast, patient injected with 100 mL of Isovue 300. FINDINGS: LUNGS: The lungs are grossly clear, there is no concerning parenchymal mass or nodule identified. T here is no pleural effusion or pneumothorax seen. The tracheobronchial tree is patent. MEDIASTINUM: There are persistent enlarged bilateral hilar lymph nodes seen best axial image 29 not s ignificantly changed from most recent CT extending inferiorly through axial image 32. Subcarinal lymp h node measures 1.9 x 1.3 cm axial image 31 not significantly changed from most recent CT. There is s table 1.3 x 1.3 cm right paratracheal lymph node axial image 19. There Are prominent but subcentimete r additional mediastinal lymph nodes redemonstrated. No cardiomegaly or pericardial effusion is seen on current study. OTHER: Contracted gallbladder is noted. Old healed left lateral mid rib fractures are redemonstrated. Fusion plate through healed left clavicular fracture is again seen. IMPRESSION: Thoracic adenopathy stable from most recent CT felt slightly less prominent from August 01, 2017 CT. No new or acute pulmonary process evident currently.
== END | disposition home or self-care (01) ==
LOC: RADCTMAIN 07:46
PROVIDERS: ATTEND Internal Medicine
DX: R59.0 Localized enlarged lymph nodes (principal)
CPT/HCPCS: 71260; Q9967

== ENCOUNTER 2019-01-11 10:40 | Day surgery (SDC) | payer OTHER ==
[2019-01-10 14:14] VITALS: BMI 35.2
[~2019-01-11 10:40] MED LIST: LACTATED RINGERS 1,000 ML IV SCH
[2019-01-11 11:27] VITALS: RESP 16; TEMP 97.8
[2019-01-11] MEDS ORDERED: PROPOFOL 10 MG/ML 20 ML VIAL IV ONE (12:42)
--- NOTE | 2019-01-11 13:19 | P.PCN ---
Date of Procedure: 01/11/19 Description of Procedure: BRIEF HISTORY: Patient is a 43-year-old pleasant male scheduled for an elective colonoscopy as a part of family history of colon cancer. Patient reports last colonoscopy 5 years ago. He has a family history of colon cancer in her sister diagnosed in her mid 40s. PROCEDURE PERFORMED: Colonoscopy with polypectomy . PREOPERATIVE DIAGNOSIS: Family history of colon cancer, last colonoscopy 5 years ago ESTIMATED BLOOD LOSS: Minimal. IV sedation per Anesthesia. PROCEDURE: After informed consent was obtained, the patient, was brought into the endoscopy unit. IV sedation was administered by Anesthesia under continuous monitoring. Digital rectal examination was normal. Initially the Olympus CF-190 flexible video colonoscope was then inserted in the rectum, gradually advanced into the cecum without any difficulty. Careful examination was performed as the scope was gradually being withdrawn. Ileocecal valve and the appendiceal orifice were visualized and appeared normal. Prep was excellent. Mucosa of the cecum, ascending colon, transverse colon, descending colon, sigmoid colon, and rectum appeared normal. A diminutive 3 mm transverse colon polyp was removed with cold forcep polypectomy. Retroflexion was performed in the rectum and no lesions were seen. The patient tolerated the procedure well. IMPRESSION: Normal-appearing colon from rectum to cecum. Diminutive transverse colon polyp removed with cold forceps. RECOMMENDATIONS: Findings of this examination were discussed with the patient and his . Okay to resume diet and medications. Await pathology from polypectomy. Anticipate repeat colonoscopy in 5 years pending pathology from polypectomy.
[2019-01-11 13:42] VITALS: BP 118/76; PULSE 66
== END 2019-01-11 13:59 | disposition home or self-care (01) ==
LOC: ORWHC2ENDO 10:40
PROVIDERS: ATTEND Internal Medicine
DX: K63.5 Polyp of colon (principal); K63.89 Other specified diseases of intestine; Z80.0 Family history of malignant neoplasm of digestive organs; F90.9 Attention-deficit hyperactivity disorder, unspecified type; K21.9 Gastro-esophageal reflux disease without esophagitis; M25.512 Pain in left shoulder; E66.01 Morbid (severe) obesity due to excess calories; Z68.35 Body mass index [BMI] 35.0-35.9, adult; Z86.711 Personal history of pulmonary embolism; Z87.828 Personal history of other (healed) physical injury and trauma; Z79.899 Other long term (current) drug therapy; Z98.890 Other specified postprocedural states
CPT/HCPCS: 88305; 45380; J2704

== ENCOUNTER 2019-09-01 05:40 | Emergency (ER) | payer OTHER ==
[2019-09-01] MEDS ORDERED: METOCLOPRAMIDE 5 MG/ML 2 ML VIAL IVP STA (06:04)
[2019-09-01] MEDS ORDERED: GLUCAGON 1 MG/ML VIAL IVP STA (06:04)
[2019-09-01] MEDS ORDERED: DIAZEPAM 5 MG/ML 2 ML INJ IVP STA (06:29)
[2019-09-01] MEDS ORDERED: NITROGLYCERIN SL TABS 0.4 MG TAB SUBLINGUAL STA (06:29)
[2019-09-01] MEDS ORDERED: SODIUM CHLORIDE 0.9% 1,000 ML IV ONE (06:30)
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
[2019-09-01 07:24] VITALS: TEMP 98.8
[2019-09-01] MEDS ORDERED: LIDOCAINE 1% INJ 10MG/ML (20 ML MDV) ONE (13:19)
[2019-09-01] MEDS ORDERED: PROPOFOL 10 MG/ML 20 ML VIAL IV ONE (13:19)
[2019-09-01] MEDS ORDERED: LACTATED RINGERS 1,000 ML IV ONE (13:20)
[2019-09-01 13:37] VITALS: BP 118/68; PULSE 84; RESP 16
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
--- NOTE | 2019-09-01 14:05 | P.PCN ---
Date of Procedure: 09/01/19 Description of Procedure: BRIEF HISTORY: 44-year-old male with a family history of colon cancer with prior colonoscopies who presented to the hospital due to difficulty swallowing. The patient had been eating steak the night before when he developed the sensation of foreign body in his distal esophagus. Subsequently the patient had difficulty swallowing and managing his secretions. He decided to present to the hospital this morning for further evaluation. The patient continues to report some chest pain in association with the esophageal foreign body. PROCEDURE PERFORMED: Esophagogastroduodenoscopy with biopsy and esophageal foreign body removal. PREOPERATIVE DIAGNOSIS: Esophageal foreign body, esophageal dysphagia. ESTIMATED BLOOD LOSS: Minimal. IV sedation per anesthesia. PROCEDURE: After informed consent was obtained, the patient was brought into the endoscopy unit. IV sedation was administered by Anesthesia under continuous monitoring. Initially the Olympus GIF-190 video endoscope was inserted into the mouth. Esophagus intubated without any difficulty. It was gradually advanced into the midesophagus where a large amount of food was seen. A snare was passed through the endoscope and used to snare the food and remove the foreign body through the mouth. The endoscope was then used to intubate the mouth with the scope passed into the esophagus where more food was noted and able to be passed into the stomach with gentle pressure, the stomach and duodenum and carefully examined. The bulb and the second part of the duodenum appeared normal, with biopsies taken. The scope at this time was withdrawn to the stomach, adequately insufflated with air, and upon careful examination, mucosa of the antrum, body, cardia and the fundus appeared normal, except for food and debris in the cardia and stomach with biopsies of the antrum and body taken. The scope was then withdrawn into the esophagus. The GE junction was located at 39 cm from the incisors, with esophagitis noted secondary to the foreign body and biopsies of midesophagus taken. The esophagus appeared normal. There were no erosions or ulcerations seen and the patient tolerated the procedure well. IMPRESSION: 1. Esophageal foreign body, removed with snare and gentle pressure pushing the remaining food into the stomach. 2. Esophagitis, related to esophageal foreign body, mid esophageal biopsies. 3. Biopsies of the duodenum and the antrum and body. RECOMMENDATIONS: The findings of this examination were discussed with the patient area to okay to resume diet, would recommend full liquids today and then advance tomorrow. Patient should be discharged on Protonix daily. Patient should follow-up in the GI clinic in 2-3 weeks for results of biopsies.
== END 2019-09-01 14:51 | disposition home or self-care (01) ==
LOC: EC 05:40
DX: T18.128A Food in esophagus causing other injury, initial encounter (principal); K20.9 Esophagitis, unspecified; F90.9 Attention-deficit hyperactivity disorder, unspecified type; Z79.899 Other long term (current) drug therapy
CPT/HCPCS: 43239; 43247; 99284; 96374; 96375 ×2; 96361 ×8; J1610; J2765; J3360; J2001; J2704

== ENCOUNTER 2023-12-16 09:24 | Day surgery (SDC) | payer MEDICAID, OTHER ==
[2023-12-16] MEDS: IV FLUID CONTINUATION 1,000 ML IV ONE (09:36)
[2023-12-16 09:42] VITALS: TEMP 97.7
[2023-12-16] MEDS: LACTATED RINGERS 1,000 ML IV SCH (10:02)
[2023-12-16] MEDS ORDERED: PROPOFOL 10 MG/ML 20 ML VIAL IV ONE (10:32)
--- NOTE | 2023-12-16 10:48 | P.PCN ---
Date of Procedure: 12/16/23 Procedure(s) Performed: BRIEF HISTORY: Patient is a 48-year-old pleasant white male scheduled for an elective colonoscopy as a part of screening for colon cancer and family history of colon cancer. His sister was diagnosed with colon cancer at age 53. PROCEDURE PERFORMED: Colonoscopy. PREOPERATIVE DIAGNOSIS: Screening for colon cancer/family history of colon cancer. IV sedation per Anesthesia. PROCEDURE: After informed consent was obtained, the patient, was brought into the endoscopy unit. IV sedation was administered by Anesthesia under continuous monitoring. Digital rectal examination was normal. Initially the Olympus CF-160 flexible video colonoscope was then inserted in the rectum, gradually advanced into the cecum without any difficulty. Careful examination was performed as the scope was gradually being withdrawn. Ileocecal valve and the appendiceal orifice were visualized and appeared normal. Prep was excellent. Mucosa of the cecum, ascending colon, transverse colon, descending colon, sigmoid colon, and rectum appeared normal. Retroflexion was performed in the rectum and no lesions were seen. The patient tolerated the procedure well. IMPRESSION: Normal-appearing colon from rectum to cecum with no evidence of colorectal neoplasia. Scattered sigmoid diverticulosis. RECOMMENDATIONS: Findings of this examination were discussed with the patient as well as his family.. Advised to have repeat screening colonoscopy in 5 years because of the family history of colon cancer
[2023-12-16 11:09] VITALS: BP 120/83; PULSE 73; RESP 16
== END 2023-12-16 11:41 | disposition home or self-care (01) ==
LOC: ORWHC2ENDO 09:24
PROVIDERS: ATTEND Internal Medicine Gastroenterology
DX: Z12.11 Encounter for screening for malignant neoplasm of colon (principal); K57.30 Diverticulosis of large intestine without perforation or abscess without bleeding; Z80.0 Family history of malignant neoplasm of digestive organs; K21.9 Gastro-esophageal reflux disease without esophagitis; F90.9 Attention-deficit hyperactivity disorder, unspecified type; Z79.899 Other long term (current) drug therapy; Z86.711 Personal history of pulmonary embolism
CPT/HCPCS: J2704; G0121